=== PATIENT | male | born 1955 | race Caucasian/White ===

== ENCOUNTER 2016-06-21 22:02 | Observation (INO) | payer OTHER ==
[~2016-06-21] VITALS: Ht 175.3 cm; Wt 157.2 kg
--- NOTE | 2016-06-21 22:43 | NUR ---
WENT TO UPDATE PT ON WAIT HE IS DOING OK AND HAS LEG ELEVATED ON A CHAIR
[2016-06-21 23:53] LABS: BASOPHILS % (AUTO) 0 % (0-2); EOSINOPHILS # (AUTO) 0.1 10^3uL; EOSINOPHILS % (AUTO) 1 % (0-4); MEAN CORPUSCULAR HEMOGLOBIN 28.6 PG (26.0-34.0); MEAN CORPUSCULAR HGB CONC 34.8 g/dL (31.0-37.0); MEAN CORPUSCULAR VOLUME 82 FL (80-100); MEAN PLATELET VOLUME 10.2 FL (6.0-9.5); MONOCYTES % (AUTO) 7 % (3-11); NEUTROPHILS # (AUTO) 11.4 X10^3; NEUTROPHILS % (AUTO) 78 % (51-67); PLATELET COUNT 171 10^3uL (150-450); WHITE BLOOD COUNT 14.63 10^3uL (4.0-11.0)
[2016-06-22 00:03] LABS: ALBUMIN 4.2 g/dL (3.4-5.0); ANION GAP 14.7 MEQ/L (3-15); CALCULATED IONIZED CALCIUM 4.2 mg/dL (3.8-4.6); TOTAL PROTEIN 7.3 g/dL (6.4-8.5)
--- NOTE | 2016-06-22 00:56 | NUR ---
RESTING IN BED NO CHANGE LEG IS ELEVATED ON PILLOW
[2016-06-22] MEDS ORDERED: VANCOMYCIN PHARMACY PROTOCOL IV SCH (01:15)
[2016-06-22] MEDS ORDERED: SODIUM CHLORIDE FLUSH 3 ML SYR IV PRN (01:15)
[2016-06-22] MEDS ORDERED: VANCOMYCIN 1,000 MG in SODIUM CHLORIDE 250 ML IV ONE ×2 (01:25→01:30)
[2016-06-22] MEDS: SODIUM CHLORIDE FLUSH 10 ML SYR IV PRN ×3 (01:30→21:31)
[2016-06-22] MEDS ORDERED: HYDROcodone/APAP 5 MG/325 MG (NORCO) TAB PO ONE (01:50)
[2016-06-22 02:30] VITALS: BP 138/68
--- NOTE | 2016-06-22 02:30 | NUR ---
Patient admitted to room from ED. Walked from cart to bed. with patient. Having some left leg soreness, and hipsorenes. Had [place] in ED before he arrived on the floor. Vancomycin 1 gram infusing via pump from ED. Oriented to room and hospital procedures. Wears Oxygen at 2 liters at home. C-pap has Oxygen bled in. Call light within reach.
[2016-06-22] MEDS ORDERED: ONDANSETRON 2 MG/ML (Z0FRAN) 2 ML VIAL IV PRN (02:50)
[2016-06-22] MEDS ORDERED: POLYETHYLENE GLYCOL 17 GM (MIRALAX) PACKET PO PRN (02:50)
[2016-06-22] MEDS ORDERED: IBUPROFEN 600 MG (MOTRIN) TAB PO PRN (02:50)
[2016-06-22] MEDS ORDERED: ACETAMINOPHEN 325 MG TAB (TYLENOL) PO PRN (03:00)
[2016-06-22 03:18] VITALS: BP 138/68
[2016-06-22] MEDS: PIPERACILLIN/TAZOBACTAM 3.375 GM in SODIUM CHLORIDE 100 ML IV SCH ×2 (06:25→14:28)
[2016-06-22] MEDS: HEPARIN 5000 UNIT/0.5 ML SYRINGE SC SCH ×2 (06:25→14:00)
--- NOTE | 2016-06-22 06:30 | NUR ---
Rested well tonight after admitted to room. Tylenol 650mg administered for left leg pain. Left leg remains red, swollen and warm. Does not want leg elevated on pillow. IV antibiotics administered as ordered. Voiding without difficulty. Ambulates to the bathroom with stand by assist. Patient uses cane for stability. C-pap worn during the night, with 2 liters of oxygen bled in. Patient is [place] with out hearing aides out. Is able to make his needs known without aides. Call light within reach.
[2016-06-22] MEDS ORDERED: INSULIN LISPRO 1 UNIT/0.01 ML (HUMALOG) DOSE SC SCH (08:00)
[2016-06-22 08:23] VITALS: BP 107/80
--- NOTE | 2016-06-22 08:41 | NUR ---
NUTRITION ASSESSMENT Level 1 Patient: Joe Blackwell Age/Sex: 60/M Date Screened: 06-22-16 Weight: 345.8#/157.2 kg Height: 69 inches Primary Diagnosis: cellulitis left leg Diet Order: large diabetic, high protein/low CHO Relevant labs: N/A Food allergies: N Nutrition Assessment Criteria Age over 80: N Body Mass Index (BMI) under 19: N Admission Screening Indicates Risk? 6 points Moderate/High Risk Diagnosis: N TPN or PPN: N NPO or clear liquid diet: N Serum Glucose <70 or >180: N/A Hgb A1c >6.7: N/A Total: 6 points Risk Screen: __ Patient at low nutritional risk based on available data; reevaluate in 5-7 days __ Patient at moderate nutritional risk based on available data; reevaluate in 3-5 days _X_ Patient at high nutritional risk; complete Nutrition Assessment within 48 hours of admission.
[2016-06-22] MEDS ORDERED: GLUCAGON EMERGENCY 1 MG/KIT IM PRN (08:45)
[2016-06-22] MEDS ORDERED: DEXTROSE ORAL GEL (GLUTOSE 40%) 15 GM TUBE PO PRN (08:45)
[2016-06-22] MEDS ORDERED: DEXTROSE 50% 25 GM/50 ML SYRINGE IV PRN (08:45)
[2016-06-22] MEDS ORDERED: DOCUSATE SODIUM 100 MG (COLACE) CAP PO PRN (08:55)
[2016-06-22] MEDS ORDERED: MAGNESIUM HYDROXIDE 80MG/ML (MILK OF MAGNESIA) 30 ML UDC PO PRN (08:55)
[2016-06-22] MEDS ORDERED: ENOXAPARIN 30 MG/0.3 ML (LOVENOX) SYR SC SCH (09:00)
[2016-06-22] MEDS ORDERED: METOPROLOL TARTRATE IV SCH (09:00)
[2016-06-22] MEDS: ATORVASTATIN 10 MG (LIPITOR) TABLET PO SCH (10:00)
[2016-06-22] MEDS: LOSARTAN 100 MG (COZAAR) TABLET PO SCH (10:00)
[2016-06-22] MEDS: ENOXAPARIN 40 MG/0.4 ML (LOVENOX) SYR SC SCH (10:00)
[2016-06-22] MEDS: PANTOPRAZOLE 40 MG (PROTONIX) TAB PO SCH (10:00)
[2016-06-22] MEDS: ASPIRIN 81 MG CHEW (CHILDREN'S ASA) PO SCH (10:00)
--- NOTE | 2016-06-22 10:25 | NUR ---
Vancomycin Dosing: Pharmacy managed S: LLE Cellulitis, with previous infection. PMHx of diabetes, HTN, stage 3 kidney disease per pt. O: 60y/o M, wt = 157.2 kg, BMI 51.2, SCr = 1.49 mg/dL, CrCl 57 ml/min, WBC 14,630 with 78% neutrophils, blood cx negative at 24 hours A/P: Start vancomycin 1500mg q12h to achieve therapeutic goal of 15-20mcg/ml, predicted trough 16.39. Draw trough before 2/28 am dose. Conducted by Josh Hopkins, PharmD Candidate 2017.
[2016-06-22] MEDS ORDERED: SODIUM CHLORIDE 100 ML ONE (10:57)
[2016-06-22] MEDS: VANCOMYCIN 1500 MG in NS IV 300 ML IV SCH ×6 (10:58→21:30)
[2016-06-22] MEDS: SODIUM CHLORIDE 100 ML IV PRN (11:06)
[2016-06-22] MEDS: INSULIN LISPRO 1 UNIT/0.01 ML (HUMALOG) DOSE SC SCH ×5 (13:02→21:31)
[2016-06-22] MEDS: HYDROcodone/APAP 5 MG/325 MG (NORCO) TAB PO PRN ×2 (14:29→21:46)
--- NOTE | 2016-06-22 14:30 | NUR ---
MULTIDISCIPLINARY MTG/DR. ORELLANA: Pt. admitted for cellulitis due to left lower extremity. Pt. has had cellulitis before. Pt. is receiving piptazo and vanco. Pt. has had some pain. Doctor ordered norco for pain. PT was ordered to work with Pt. due to him being unsteady on his feet. No discharge needs identified at this time.
--- NOTE | 2016-06-22 14:31 | NUR ---
Redness on the left lower leg is within the marked lines of admission. Patient continues to complain of pain in this extremity. Dozier 5mg. tab given for pain rated 7/10.
--- NOTE | 2016-06-22 14:37 | NUR ---
MED REC COMPLETE--current med list obtained from external med history application, patient interview, and list from patient's PCP (Dr. Vasques). Completed by Danii Hopkins, Pharm. D. Candidate 2017.
[2016-06-22 15:53] VITALS: BP 140/61
--- NOTE | 2016-06-22 18:16 | NUR ---
Patient has had few complaints. Has had leg pain which is intermittent. Patient had small skin tear on right dye after working with PT. Cleaned at this time with Dermal Wound Cleanser and dressed with Mepatel dressing. Tear is about 1 cm in length and there was no bleeding. Edges well matched when dressed. Redness on LLE is receding using the skin marker lines for reference. Zosyn infusing is almost complete.
--- NOTE | 2016-06-22 19:30 | NUR ---
Pt laying in bed visiting with his . Redness on his left leg with in sharpie area. SL without redness or edema. Pt has no c/o at this time.
[2016-06-22] MEDS ORDERED: INSULIN DEGLUDEC 40 UNIT SQ SCH (21:00)
[2016-06-22] MEDS ORDERED: INSULIN GLARGINE 1 UNIT/0.01ML (LANTUS) DOSE SC SCH (21:00)
[2016-06-22] MEDS: VANCOMYCIN COMPOUNDED BY PHARMACY IV SCH (21:48)
[2016-06-23 00:05] VITALS: BP 140/80
[2016-06-23] MEDS: HYDROcodone/APAP 5 MG/325 MG (NORCO) TAB PO PRN ×2 (02:40→09:47)
[2016-06-23 06:07] LABS: BASOPHILS % (AUTO) 0 % (0-2); EOSINOPHILS # (AUTO) 0.2 10^3uL; EOSINOPHILS % (AUTO) 2 % (0-4); LYMPHOCYTES # (AUTO) 1.9 X10^3; MEAN CORPUSCULAR HEMOGLOBIN 27.8 PG (26.0-34.0); MEAN CORPUSCULAR HGB CONC 33.8 g/dL (31.0-37.0); MEAN CORPUSCULAR VOLUME 82 FL (80-100); MEAN PLATELET VOLUME 10.1 FL (6.0-9.5); MONOCYTES % (AUTO) 9 % (3-11); NEUTROPHILS # (AUTO) 7.2 X10^3; NEUTROPHILS % (AUTO) 70 % (51-67); PLATELET COUNT 147 10^3uL (150-450); WHITE BLOOD COUNT 10.31 10^3uL (4.0-11.0)
[2016-06-23 06:23] LABS: ALBUMIN 3.8 g/dL (3.4-5.0); ANION GAP 11.6 MEQ/L (3-15); PHOSPHORUS 3.8 mg/dL (2.4-4.9)
--- NOTE | 2016-06-23 06:35 | NUR ---
Pt sleeps a short amount of time this shift. PRN norco provided for leg pain. SL intact. Resp even and non labored on RA.
[2016-06-23] MEDS: PANTOPRAZOLE 40 MG (PROTONIX) TAB PO SCH (06:45)
[2016-06-23] MEDS: SODIUM CHLORIDE FLUSH 10 ML SYR IV PRN (06:45)
[2016-06-23] MEDS: PIPERACILLIN/TAZOBACTAM 3.375 GM in SODIUM CHLORIDE 100 ML IV SCH ×4 (06:45→14:00)
[2016-06-23] MEDS: SODIUM CHLORIDE 100 ML IV PRN (06:45)
[2016-06-23 07:39] VITALS: BP 148/68
[2016-06-23] MEDS: INSULIN LISPRO 1 UNIT/0.01 ML (HUMALOG) DOSE SC SCH ×4 (08:16→13:33)
[2016-06-23] MEDS: LOSARTAN 100 MG (COZAAR) TABLET PO SCH (09:46)
[2016-06-23] MEDS: ASPIRIN 81 MG CHEW (CHILDREN'S ASA) PO SCH (09:46)
[2016-06-23] MEDS: ATORVASTATIN 10 MG (LIPITOR) TABLET PO SCH (09:46)
[2016-06-23] MEDS: ENOXAPARIN 40 MG/0.4 ML (LOVENOX) SYR SC SCH (09:50)
--- NOTE | 2016-06-23 10:12 | NUR ---
Reviewed discharge medications with patient. Provided patient handout information for new medications. No additional questions or concerns. Patient verbalized understanding of medications. Conducted by Ryan HeinD Candidate 2017.
[2016-06-23] MEDS: VANCOMYCIN COMPOUNDED BY PHARMACY IV SCH (10:30)
[2016-06-23] MEDS: VANCOMYCIN 1500 MG in NS IV 300 ML IV SCH ×3 (10:30)
--- NOTE | 2016-06-23 12:00 | NUR ---
Patient reports oral pain medication has helped his pain. Cooperates with elevating leg while in the recliner.
[2016-06-23 15:47] VITALS: BP 128/61
--- NOTE | 2016-06-23 16:45 | NUR ---
Gave the patient discharge instructions and printed script for [place]. Instructed him script for antibiotic was sent electronically to [facility]. Informed him to take all antibiotic even if feeling better. Also instructed him on proper follow up with PCP in the next 3 to 5 days. Patient demonstrated verbal understanding. Saline lock in the right hand was DC'd after instructions were read.
--- NOTE | 2016-06-23 16:53 | NUR ---
Patient dismissed per wheelchair accompanied by a MAT MACHINE TENDER and his .
== END 2016-06-23 16:53 | disposition home or self-care (01) ==
LOC: ED 22:05 → INTOOBSV 06-22 01:55 → MED/SURG 06-22 01:55 → UNDOADMIN 06-22 01:55
PROVIDERS: ADMIT Pediatrics; ATTEND Pediatrics
DX: L03.116 Cellulitis of left lower limb (principal); E11.22 Type 2 diabetes mellitus with diabetic chronic kidney disease; I12.9 Hypertensive chronic kidney disease with stage 1 through stage 4 chronic kidney disease, or unspecified chronic kidney disease; N18.2 Chronic kidney disease, stage 2 (mild); E66.9 Obesity, unspecified; Z68.43 Body mass index [BMI] 50.0-59.9, adult; I87.2 Venous insufficiency (chronic) (peripheral); E11.40 Type 2 diabetes mellitus with diabetic neuropathy, unspecified; G47.33 Obstructive sleep apnea (adult) (pediatric); E78.5 Hyperlipidemia, unspecified; Z79.4 Long term (current) use of insulin
CPT/HCPCS: 36415; 80053; 80069; 83036; 85025; 85379; 86140; 87040; 96374; 97110; 97161; 99284; G8978; G8979; J1644; J1650; J1815; J2543; J3370; J7050; 96361; 96372; 99218